=== PATIENT | male | born 1970 | race Two or more races ===

== ENCOUNTER 2025-02-06 10:00 | Day surgery (SDC) | payer OTHER ==
[2025-02-06] MEDS ORDERED: DIPHENHYDRAMINE HCL 50 MG/ML VIAL 1ML IV ONE ×2 (14:30)
[2025-02-06] MEDS ORDERED: fentaNYL CITRATE 50 MCG/ML AMPUL IV PUSH ONE (14:30)
[2025-02-06] MEDS ORDERED: MIDAZOLAM HCL 2 MG/2 ML VIAL IV ONE (14:30)
== END 2025-02-06 15:05 | disposition home or self-care (01) ==
LOC: AMB-ENDOS 10:00
PROVIDERS: ATTEND Internal Medicine
DX: K57.30 Diverticulosis of large intestine without perforation or abscess without bleeding (principal); R19.4 Change in bowel habit; K21.9 Gastro-esophageal reflux disease without esophagitis; D64.9 Anemia, unspecified